=== PATIENT | male | born 1975 | race Caucasian/White ===

== ENCOUNTER 2018-03-29 17:25 | Emergency (ER) | payer SELFPAY ==
[~2018-03-29] VITALS: Ht 180.3 cm; Wt 82.8 kg
[~2018-03-29 17:25] MED LIST: CITA20TA9 PO; CLON0.1T12 PO; IBUP400T18 PO; MELO7.5T5 PO; NORT25CA PO; OXCA150T3 PO; RANI150T21 PO
[2018-03-29 17:46] VITALS: BP 140/81
[2018-03-29] MEDS ORDERED: LIDOCAINE WITH 8.4% SOD BICARB 3 ML DISP.SYRIN. IJ ONE (18:00)
--- NOTE | 2018-03-29 18:03 | PHYS DOC ---
Past History Past Medical History: Anxiety, Depression Past Surgical History: Other Alcohol Use: None Drug Use: None Adult General Chief Complaint Chief Complaint: LACERATION/AVULSION HPI HPI Patient is a 43-year-old male who presents after falling and hitting his head on the edge of concrete. Patient states that he was walking, looking at his cell phone when he tripped and fell. Patient denies any loss of consciousness. He complains of moderate headache that he rates at a 6-7 out of 10. He denies any nausea or vomiting. He denies any neck pain. Review of Systems Review of Systems Constitutional: Denies fever or chills [] Eyes: Denies change in visual acuity, redness, or eye pain [] HENT: Positive laceration above right eye[] Musculoskeletal: Denies back pain or neck pain [] Integument: Positive laceration[] Neurologic: Complains of headache[] All other systems were reviewed and found to be within normal limits, except as documented in this note. Current Medications Current Medications Current Medications Medications (Trade) Dose Ordered Sig/Nette Start Time Stop Time Status Last Admin Dose Admin Lidocaine/Sodium Bicarbonate (Buffered Lidocaine 1%) 6 ml 1X ONCE 03/29/18 18:00 03/29/18 18:01 Allergies Allergies Allergies Coded Allergies Type Severity Reaction Last Updated Verified codeine Allergy Intermediate Unknown 08/08/15 Yes Physical Exam Physical Exam Constitutional: Well developed, well nourished, no acute distress, non-toxic appearance. [] HENT: There is a 2 cm laceration just above the right eyebrow extending into subcutaneous tissue. Or is small hematoma overlying this area as well as around the maxillary region just below the eye. Laceration is linear with sharp margins [] Eyes: PERRLA, EOMI, conjunctiva normal, no discharge. [] Neck: Normal range of motion, no tenderness, supple, no stridor. [] Cardiovascular:Heart rate regular rhythm [] Lungs & Thorax: Bilateral breath sounds clear to auscultation [] Skin: Laceration as noted above. [] Extremities: No tenderness, no cyanosis, no clubbing, ROM intact, no edema. [] Neurologic: Alert and oriented X 3, normal motor function, normal sensory function, no focal deficits noted. [] Current Patient Data Vital Signs Vital Signs Date Time Temp Pulse Resp B/P (MAP) Pulse Ox O2 Delivery O2 Flow Rate FiO2 10/13/18 17:46 98.2 57 20 100 Room Air EKG EKG [] Radiology/Procedures Radiology/Procedures [] Impressions: PQRS Compliance Statement: One or more of the following individualized dose reduction techniques were utilized for this examination: 1. Automated exposure control 2. Adjustment of the mA and/or kV according to patient size 3. Use of iterative reconstruction technique CT HEAD AND MAXILLOFACIAL WITHOUT CONTRAST History: Injury from fall today with head and facial trauma, headache, right sided facial abrasions and laceration above eye Comparison: None. Procedure: Axial images are obtained of the head from the skull base through the vertex without IV contrast. Helical CT imaging of the facial bones is performed without IV contrast. Findings: The ventricles and sulci are normal for the patient's age. No mass-effect, midline shift, hemorrhage or obvious acute infarction is identified. Basilar cisterns are patent. Bone windows demonstrate no significant calvarial abnormality. No acute facial bone fracture. The patient is edentulous. Upper cervical spine alignment is maintained. The orbital floors are intact. There is soft tissue swelling of the right cheek. Tiny bubble of subcutaneous air probably from laceration superior and lateral to the right orbit. The globes are intact. The visualized paranasal sinuses are clear. Mastoid air cells are well aerated. IMPRESSION: 1. No acute intracranial abnormality. 2. No acute facial bone fracture. Electronically signed by: Jet Singh MD (03/29/2018 6:42 PM) [facility] DICTATED AND SIGNED BY: JET SINGH MD DATE: 03/29/18 1837 CC: LANDON CRAIG Jr. DO; PCP,NO Course & Med Decision Making Course & Med Decision Making Pertinent Labs and Imaging studies reviewed. (See chart for details) Laceration Repair by me: Anesthesia: 1% lidocaine locally Location: Right forehead just above eyebrow Tendon/Joint/Nerves: No injury Foreign body: None detected after copious irrigation and exploration Technique: A total of 6 Simple Interrupted Sutures utilizing 5-0 Ethilon suture Complexity: No subcutaneous sutures/mucosal repair/edge excision Post Closure Length: 2 cm Patient's bleeding was easily controlled in the department and there is no indication of anemia. No evidence of neurologic injury, vascular injury, open joint, tendon laceration , or foreign body. Patient is appropriate for outpatient follow up. 48 hour wound check. Scar minimization instructions given. After laceration repair was completed CT imaging of the head and maxillofacial have been ordered. Patient is being signed out to Dr. Sandoval at 6:00 PM. The patient's head and maxillofacial CT is negative for fracture or other significant acute findings. He is stable for discharge at this time. Dragon Disclaimer Dragon Disclaimer This electronic medical record was generated, in whole or in part, using a voice recognition dictation system. Departure Departure: Impression: Primary Impression: Laceration of forehead without complication Referrals: PCP,NO (PCP) Problem Qualifiers Primary Impression: Laceration of forehead without complication Encounter type: initial encounter Qualified Codes: S01.81XA - Laceration without foreign body of other part of head, initial encounter LANDON CRAIG Jr. DO Mar 29, 2018 18:03 KELLEN SANDOVAL DO Mar 29, 2018 18:52
--- NOTE | 2018-03-29 18:46 | RAD ---
PQRS Compliance Statement: One or more of the following individualized dose reduction techniques were utilized for this examination: 1. Automated exposure control 2. Adjustment of the mA and/or kV according to patient size 3. Use of iterative reconstruction technique CT HEAD AND MAXILLOFACIAL WITHOUT CONTRAST History: Injury from fall today with head and facial trauma, headache, right sided facial abrasions and laceration above eye Comparison: None. Procedure: Axial images are obtained of the head from the skull base through the vertex without IV contrast. Helical CT imaging of the facial bones is performed without IV contrast. Findings: The ventricles and sulci are normal for the patient's age. No mass-effect, midline shift, hemorrhage or obvious acute infarction is identified. Basilar cisterns are patent. Bone windows demonstrate no significant calvarial abnormality. No acute facial bone fracture. The patient is edentulous. Upper cervical spine alignment is maintained. The orbital floors are intact. There is soft tissue swelling of the right cheek. Tiny bubble of subcutaneous air probably from laceration superior and lateral to the right orbit. The globes are intact. The visualized paranasal sinuses are clear. Mastoid air cells are well aerated. IMPRESSION: 1. No acute intracranial abnormality. 2. No acute facial bone fracture. Electronically signed by: Jet Singh MD (03/29/2018 6:42 PM) [facility]
[2018-03-29] MEDS ORDERED: NAPROXEN 500 MG TABLET PO ONE (19:00)
== END 2018-03-29 18:55 | disposition home or self-care (01) ==
LOC: ER 17:25
DX: S01.81XA Laceration without foreign body of other part of head, initial encounter (principal); W01.0XXA Fall on same level from slipping, tripping and stumbling without subsequent striking against object, initial encounter; Y93.01 Activity, walking, marching and hiking; Y92.89 Other specified places as the place of occurrence of the external cause; Y99.8 Other external cause status; Z88.5 Allergy status to narcotic agent
CPT/HCPCS: 12011; 70450; 70486; 99284-25